=== PATIENT | male | born 1955 | race African-American/Black ===

== ENCOUNTER → 2016-07-22 | Outpatient (CLI) | payer OTHER ==
[~2016-07-22] MED LIST: HYDR-3129 PO; IBUP800 PO; LISI-360 PO; MELO15; OXYC20 PO; atripla
--- NOTE | 2016-07-22 11:31 | RADRPT ---
EXAM DATE/TIME: 07/22/2016 11:10 [place] COMPARISON: No previous studies available for comparison. INDICATIONS : Positive PPD. MEDICAL HISTORY : HIV Former smoker. SURGICAL HISTORY : Right knee. ENCOUNTER: Initial ACUITY: 1 day PAIN SCORE: 0/10 LOCATION: chest FINDINGS: PA and lateral views of the chest demonstrate the lungs to be symmetrically aerated without evidence of mass, infiltrate or effusion. The cardiomediastinal contours are unremarkable. Osseous structure s are intact. CONCLUSION: No acute disease. Alonso Mcguire MD on July 22, 2016 at 11:30 Board Certified Radiologist. This report was verified electronically.
== END ==
LOC: HRAD 10:53
DX: B20 Human immunodeficiency virus [HIV] disease (principal)
CPT/HCPCS: 71020